=== PATIENT | male | born 1965 | race Caucasian/White ===

== ENCOUNTER 2020-10-03 15:36 | Inpatient (IN) | payer BC ==
[~2020-10-03] VITALS: Ht 177.8 cm; Wt 101.2 kg
[2020-10-03] VITALS (9 sets, daily range): BP systolic 106–157; BP diastolic 56–104
--- NOTE | 2020-10-03 02:00 | NUR ---
Stable,saturating 97-98 % on 2 L NC. States he's feeling much better.Needs attended,will continue to monitor respiratory status.
[2020-10-03] MEDS ORDERED: ZOLPIDEM TARTRATE 5 MG TABLET PO PRN (16:30)
[2020-10-03] MEDS ORDERED: HYDROCODONE/APAP 5/325MG TABLET PO PRN (16:30)
[2020-10-03] MEDS ORDERED: DEXAMETHASONE SOD PHOSPHATE 10 MG/ML VIAL IV SCH (16:30)
[2020-10-03] MEDS ORDERED: ONDANSETRON HCL/PF 4 MG/2 ML VIAL IVP PRN (16:30)
[2020-10-03] MEDS ORDERED: ACETAMINOPHEN 325 MG TABLET PO PRN (16:30)
[2020-10-03] MEDS ORDERED: MAGNESIUM HYDROXIDE 30 ML UDC PO PRN (16:30)
[2020-10-03] MEDS ORDERED: MAG HYDROX/AL HYDROX/SIMETH 30 ML UDC PO PRN (16:30)
[2020-10-03] MEDS ORDERED: ENOXAPARIN SODIUM 40 MG/0.4 ML DISP.SYRIN SQ SCH (16:30)
[2020-10-03] MEDS ORDERED: Z GUARD REMEDY 2 OZ OINT TP PRN (16:30)
--- NOTE | 2020-10-03 16:30 | NUR ---
DIET TECH DIRECT ADMIT FROM HOME PT IN STABLE CONDITION AOX4 VS STABLE ON 2L NC SAT 97% NO DISTRESS NOTED, IV ACCESS ESTABLISHED X2 R AND L ARM LAB AT BEDSIDE, MD AT BEDSIDE ASSESSING PT, CALL LIGHT W/ IN REACH ORDERS RECEIVED WILL MICHAEL OUT SAFETY MEASURES TAKEN CALL LIGHT W/ IN REACH WILL CONT TO MONITOR.
[2020-10-03] MEDS: CEFTRIAXONE 1 G in IV D5W 50 ML IV SCH (16:55)
[2020-10-03] MEDS: DEXAMETHASONE SOD PHOSPHATE 10 MG/ML VIAL IV SCH (17:01)
[2020-10-03] MEDS: ALBUTEROL SULFATE INH 18 GM HFA.AER.AD IH SCH ×3 (17:02→23:30)
[2020-10-03] MEDS: AZITHROMYCIN 500 MG in IV D5W 250 ML IV SCH (17:48)
[2020-10-03] MEDS ORDERED: ASPI-1169 PO (17:58)
[2020-10-03] MEDS ORDERED: CAND32TA9 PO (17:58)
[2020-10-03] MEDS ORDERED: ROSU10TA2 PO (17:58)
[2020-10-03 18:14] LABS: C-REACTIVE PROTEIN 12.3 mg/dL (0.0-0.9)
[2020-10-03 18:16] LABS: ALBUMIN 3.4 g/dL (3.4-5.0); BILIRUBIN,DIRECT 0.1 mg/dL (0.0-0.2); BILIRUBIN,TOTAL 0.2 mg/dL (0.2-1.0); BILIRUBIN,TOTAL 0.3 mg/dL (0.2-1.0); CALCIUM, SERUM 8.8 mg/dL (8.5-10.1); CREATININE 1.2 mg/dL (0.6-1.3); POTASSIUM 4.3 mmol/L (3.5-5.1); TOTAL PROTEIN, SERUM 6.6 g/dL (6.4-8.2)
[2020-10-03 18:24] LABS: THYROID STIMULATING HORMONE 4.153 uIU/mL (0.358-3.74)
[2020-10-03] MEDS: ALPRAZOLAM 1 MG TABLET PO PRN (18:55)
--- NOTE | 2020-10-03 19:00 | NUR ---
Received patient awake,alert,not in any respiratory distress,breathing regular and non labored,on nasal cannula 2 l/min. ,denies any chest pain,(-) cough.On contact /enhanced droplet isolation pending Covid test.Needs attended.Will closely monitor for any S/S of respiratory issues.
--- NOTE | 2020-10-03 19:05 | NUR ---
arboriculture instructor iv line was leaking both antibiotics which was scanned and hung did not reach to the pt as it leaked in the room. call pharmacy will make new dose to be given.
[2020-10-03 19:20] LABS: BASOPHILS % (AUTO) 0.5 % (0.0-2.0); EOSINOPHILS % (AUTO) 6.2 % (0.0-6.0); HEMATOCRIT 40 % (39-51); LYMPHOCYTES # (AUTO) 1.7 /CMM (0.8-4.8); LYMPHOCYTES % (AUTO) 18.3 % (20.0-44.0); MEAN CORPUSCULAR HGB CONC 33 g/dl (31.0-36.0); MEAN CORPUSCULAR VOLUME 86 fL (80-96); MONOCYTES # (AUTO) 0.8 /CMM (0.1-1.30); MONOCYTES % (AUTO) 9.2 % (2.0-12.0); NEUTROPHILS # (AUTO) 5.9 /CMM (1.8-8.9); NEUTROPHILS % (AUTO) 65.8 % (43.0-81.0); PLATELET COUNT (AUTO) 204 /CMM (150-450); RED BLOOD CELL COUNT(AUTO) 4.65 MIL/uL (4.5-6.0)
[2020-10-03] MEDS: ASPIRIN 81 MG TAB.CHEW PO SCH (21:33)
[2020-10-03] MEDS: ATORVASTATIN 10 MG TABLET PO SCH (21:34)
[2020-10-03] MEDS: LOSARTAN POTASSIUM 50 MG TABLET PO SCH (21:35)
[2020-10-03] MEDS: ENOXAPARIN SODIUM 40 MG/0.4 ML DISP.SYRIN SQ SCH (21:36)
--- NOTE | 2020-10-03 22:00 | NUR ---
Remains stable,not in any distress,will continue to closely monitor respiratory status.States he's feeling a lot better now .
[2020-10-03 22:43] LABS: BILIRUBIN,URINE NEGATIVE (NEGATIVE); BLOOD, URINE NEGATIVE Ery/uL (NEGATIVE); COLOR,URINE YELLOW (YELLOW); LEUKOCYTE ESTERASE ,URINE NEGATIVE (NEGATIVE); NITRITE, URINE NEGATIVE (NEGATIVE); PROTEIN,URINE NEGATIVE (NEGATIVE); UGLUCOSE NEGATIVE (NEGATIVE); UROBILINOGEN,URINE 0.2 EU/dL (0.2)
[2020-10-04] VITALS (20 sets, daily range): BP systolic 100–133; BP diastolic 62–84
--- NOTE | 2020-10-04 | NUR ---
Asleep, stable, saturating 95-97 % on NC 2 L/min.
--- NOTE | 2020-10-04 01:00 | NUR ---
Observed to be bradycardic as low as 40's, asymptomatic(as per patient ,states he can go as low as 30's at times when he's asleep)
--- NOTE | 2020-10-04 02:00 | NUR ---
Observed to desaturate to 86-88 % on room air. Made sure patient has his O2 on at all times.
[2020-10-04] MEDS: ALPRAZOLAM 1 MG TABLET PO PRN ×3 (02:20→22:06)
[2020-10-04] MEDS: ALBUTEROL SULFATE INH 18 GM HFA.AER.AD IH SCH ×6 (03:30→23:35)
[2020-10-04 04:28] LABS: BASOPHILS % (AUTO) 0.5 % (0.0-2.0); EOSINOPHILS % (AUTO) 9.6 % (0.0-6.0); HEMATOCRIT 38 % (39-51); HEMOGLOBIN 12.3 g/dL (13.5-17.5); LYMPHOCYTES # (AUTO) 1.3 /CMM (0.8-4.8); LYMPHOCYTES % (AUTO) 24.6 % (20.0-44.0); MEAN CORPUSCULAR HGB CONC 33 g/dl (31.0-36.0); MEAN CORPUSCULAR VOLUME 87 fL (80-96); MONOCYTES # (AUTO) 0.6 /CMM (0.1-1.30); MONOCYTES % (AUTO) 11.2 % (2.0-12.0); NEUTROPHILS # (AUTO) 2.9 /CMM (1.8-8.9); NEUTROPHILS % (AUTO) 54.1 % (43.0-81.0); PLATELET COUNT (AUTO) 205 /CMM (150-450); RED BLOOD CELL COUNT(AUTO) 4.34 MIL/uL (4.5-6.0); WHITE BLOOD COUNT (AUTO) 5.4 K/uL (4.3-11.0)
--- NOTE | 2020-10-04 04:30 | NUR ---
Chest X ray done.Remains stable.not in any distress,breathing regular and non labored.
[2020-10-04 04:44] LABS: CALCIUM, SERUM 8.6 mg/dL (8.5-10.1); CARBON DIOXIDE 25 mmol/L (21-32); CHLORIDE 105 mmol/L (98-107); GLUCOSE 101 mg/dL (74-106); MAGNESIUM 2.2 mg/dL (1.8-2.4); PHOSPHORUS 4.8 mg/dL (2.5-4.9); POTASSIUM 4.3 mmol/L (3.5-5.1); SODIUM SERUM 139 mmol/L (136-145); UREA NITROGEN, BLOOD 18 mg/dL (7-18)
[2020-10-04 05:03] LABS: C-REACTIVE PROTEIN 10.5 mg/dL (0.0-0.9)
--- NOTE | 2020-10-04 07:00 | NUR ---
Called lab. to expedite Covid PCR test ( Dr. Soto called to ask lab to expedite testing),spoke to Jose Miguel in the lab.
--- NOTE | 2020-10-04 07:45 | NUR ---
ICU/RN PT IS AWAKE,ALERT.ON 2L N/C SAT O2-95%.V/S STABLE,AFEBRILE.NO PAIN REPORTED AT THIS TIME.IV-HL.PT USE URINAL AND AMBULATE IN THE ROOM.HAS SOB ON EXERTION. COVID -19 PCR TEST PENDING.
[2020-10-04] MEDS: ASPIRIN 81 MG TAB.CHEW PO SCH (08:11)
[2020-10-04] MEDS: DEXAMETHASONE SOD PHOSPHATE 10 MG/ML VIAL IV SCH (08:12)
[2020-10-04] MEDS ORDERED: LOSARTAN POTASSIUM 50 MG TABLET PO SCH (09:00)
--- NOTE | 2020-10-04 09:00 | NUR ---
ICU/RN DUE MEDS ARE GIVEN ORDERED.
--- NOTE | 2020-10-04 11:00 | NUR ---
ICU/RN PCR RESULTED.IS NEGATIVE.DR CROWELL NOTIFIED. NEW TEST REORDERED.AND SEND TO THE LAB.
[2020-10-04] MEDS: AZITHROMYCIN 500 MG in IV D5W 250 ML IV SCH (15:50)
[2020-10-04] MEDS: HYDROCODONE BIT/HOMATROPINE 5 ML UDC PO PRN ×2 (15:50→22:05)
[2020-10-04] MEDS: CEFTRIAXONE 1 G in IV D5W 50 ML IV SCH (15:51)
[2020-10-04] MEDS ORDERED: HYDROCODONE BIT/HOMATROPINE 5 ML UDC PO PRN (16:00)
--- NOTE | 2020-10-04 18:00 | NUR ---
ICU/RN PM CARE PROVIDED.DUE MEDS ARE GIVEN ORDERED.PT HAS SOB WHEN AMBULATING .ON RA.PLACED BACK ON 2 L N/C .V/S STABLE,AFEBRILE.NO PAIN REPORTED AT THIS TIME.CONTINUE MONITORING.
--- NOTE | 2020-10-04 19:45 | NUR ---
ICU/SOCIAL SERVICES AIDE RECEIVED REPORT FROM DAY NURSE. SEE FLOWSHEET FOR ASSESSMENT,THERE ARE NO SKIN ISSUES WHICH NEED TO BE ADDRESSED ON FLOWSHEET. PT IS ALERT. PT IS ON 2 LITERS N/C, TOLERATING THIS WELL WITH SATURATION AT 96-97%. PT UP AMBULATING AT [facility], PT UP TO BATHROOM WITH STEADY GAIT. WILL CONTINUE TO MONITOR THIS PT, NO ACUTE DISTRESS SEEN. CALL LIGHT WITHIN REACH.
--- NOTE | 2020-10-04 21:00 | NUR ---
ICU/RADIATION CONTROL SPECIALIST CRITICAL LAB RESULT WAS THAT PT HAS A NEGATIVE COVID-19 TEST RESULT.
[2020-10-04] MEDS: ENOXAPARIN SODIUM 40 MG/0.4 ML DISP.SYRIN SQ SCH (21:09)
[2020-10-04] MEDS: ATORVASTATIN 10 MG TABLET PO SCH (21:11)
[2020-10-04] MEDS: LOSARTAN POTASSIUM 50 MG TABLET PO SCH (21:11)
--- NOTE | 2020-10-04 23:00 | NUR ---
ICU/AMBULETTE DRIVER PT REQUESTED XANAX PRN FOR SLEEP, ALONG WITH THE COUGH MEDICATION WHICH THE PT HAS ON OCCASION. PT'S CALL LIGHT IS WITHIN REACH, WILL CONTINUE TO MONITOR HIM.
--- NOTE | 2020-10-04 23:20 | NUR ---
ICU/CRM ADMINISTRATOR PT APPEARS TO BE ASLEEP, BLOOD PRESSURE CUFF IS OFF, WILL PLACE BACK ON PT WHEN AWAKE. PT'S CALL LIGHT IN REACH.
[2020-10-05] VITALS: BP 133/80
--- NOTE | 2020-10-05 02:10 | NUR ---
ICU/SOCIAL WORK COORDINATOR PT APPEARS TO BE ASLEEP COMFORTABLE, NO ACUTE DISTRESS SEEN. WILL CONTINUE TO MONITOR THIS PT.
[2020-10-05] MEDS: ALBUTEROL SULFATE INH 18 GM HFA.AER.AD IH SCH ×2 (03:43→08:03)
[2020-10-05 04:00] VITALS: BP 134/85
--- NOTE | 2020-10-05 05:00 | NUR ---
ICU/HRIS ADMINISTRATOR PT'S ASLEEP, NO ACUTE DISTRESS SEEN, PT APPREAS TO BE RESTING COMFORTABLE. PT HAD ASKED SLEEP AFTER TAKING XANAX. CALL LIGHT WITHIN REACH.
--- NOTE | 2020-10-05 07:15 | NUR ---
TALEND ETL DEVELOPER NOTES RECEIVED PATIENT ASLEEP , STABLE , NOT IN ACUTE DISTRESS ,RESPIRATIONS EVEN AND UNLABORED , SPO2 OF 98% VIA 2LPM NC , SB 55 ON BEDSIDE MONITOR , PIV PATENT AND INTACT SL , ALL NEEDS ATTENDED , WILL CONTINUE TO MONITOR .
[2020-10-05 07:17] LABS: BASOPHILS % (AUTO) 0.2 % (0.0-2.0); EOSINOPHILS % (AUTO) 3.9 % (0.0-6.0); HEMATOCRIT 40 % (39-51); HEMOGLOBIN 12.8 g/dL (13.5-17.5); MEAN CORPUSCULAR HGB CONC 33 g/dl (31.0-36.0); MEAN CORPUSCULAR VOLUME 87 fL (80-96); MONOCYTES # (AUTO) 0.8 /CMM (0.1-1.30); MONOCYTES % (AUTO) 8.3 % (2.0-12.0); NEUTROPHILS # (AUTO) 6.7 /CMM (1.8-8.9); NEUTROPHILS % (AUTO) 67.6 % (43.0-81.0); PLATELET COUNT (AUTO) 238 /CMM (150-450); RED BLOOD CELL COUNT(AUTO) 4.52 MIL/uL (4.5-6.0); WHITE BLOOD COUNT (AUTO) 9.9 K/uL (4.3-11.0)
[2020-10-05 07:28] LABS: CALCIUM, SERUM 8.8 mg/dL (8.5-10.1); CREATININE 0.9 mg/dL (0.6-1.3); MAGNESIUM 2.1 mg/dL (1.8-2.4); PHOSPHORUS 3.9 mg/dL (2.5-4.9); POTASSIUM 4.6 mmol/L (3.5-5.1)
[2020-10-05 08:00] VITALS: BP_SYST 133; BP_SYST 135; BP_DIAS 69; BP_DIAS 85
--- NOTE | 2020-10-05 08:00 | NUR ---
ELECTRIC CONTAINER TESTER NOTES PLACED PT ON RA , PT STABLE AT THIS TIME , NOTED WITH MILD SOB DURING ADL'S , VS STABLE AFEBRILE , WILL CONTINUE TO MONITOR .
[2020-10-05] MEDS: DEXAMETHASONE SOD PHOSPHATE 10 MG/ML VIAL IV SCH (08:03)
[2020-10-05] MEDS: ASPIRIN 81 MG TAB.CHEW PO SCH (08:03)
[2020-10-05] MEDS ORDERED: LEVO500T90 PO (08:09)
[2020-10-05] MEDS ORDERED: INFLUENZA VACCINE 2020-21 0.5 ML DISP.SYRIN IM ONE (10:00)
[2020-10-05] MEDS: HYDROCODONE BIT/HOMATROPINE 5 ML UDC PO PRN (10:44)
[2020-10-05] MEDS ORDERED: ALBU18HF2 INH (10:57)
[2020-10-05] MEDS ORDERED: GUAIFENESIN/D-METHORPHAN HB 5 ML UDC PO PRN (11:00)
--- NOTE | 2020-10-05 11:03 | NUR ---
JIGGER CROWN POUNCING MACHINE OPERATOR NOTES PT STABLE UPON DISCHARGE , NO COMPLAINS AT THIS TIME , VS STABLE , DISCHARGE INSTRUCTIONS AND PRESCRIPTIONS EXPLAINED PT VERBALIZED UNDERSTANDING , PIV REMOVED NO BLEEDING NOTED , SKIN INTACT , WILL CONTINUE TO MONITOR .
[2020-10-05] MEDS ORDERED: AZITHROMYCIN 250 MG TABLET PO ONE (11:30)
== END 2020-10-05 11:11 | disposition home or self-care (01) | DRG 177 ==
LOC: ICU 15:36
PROVIDERS: ADMIT Internal Medicine; ATTEND Internal Medicine
DX: J69.0 Pneumonitis due to inhalation of food and vomit (principal); J96.01 Acute respiratory failure with hypoxia; I10 Essential (primary) hypertension; E78.5 Hyperlipidemia, unspecified; D86.9 Sarcoidosis, unspecified; R00.1 Bradycardia, unspecified; J98.01 Acute bronchospasm; N20.0 Calculus of kidney; F17.220 Nicotine dependence, chewing tobacco, uncomplicated; J84.10 Pulmonary fibrosis, unspecified
CPT/HCPCS: 36415; 71045-TC; 80048-TC; 80053-TC; 80076-TC; 81000-TC; 82728-TC; 83615-TC; 83735-TC; 84100-TC; 84439-TC; 84443-TC; 84484-TC; 85025-TC; 85378-TC; 86140-TC; 87081-TC; 93307-TC; A6403; G0378; J0456; J0696; J1100; J1650; J7050; J7060; Q2036; U0003

== ENCOUNTER 2021-01-10 13:06 | Outpatient (CLI) | payer BC ==
[~2021-01-10 13:06] MED LIST: ALBU18HF2 INH; ASPI-1169 PO; CAND32TA9 PO; LEVO500T90 PO; ROSU10TA2 PO
== END 2021-01-10 23:59 | disposition home or self-care (01) ==
LOC: MRI 13:06
PROVIDERS: ATTEND Nurse Practitioner Acute Care
DX: S46.211A Strain of muscle, fascia and tendon of other parts of biceps, right arm, initial encounter (principal); M79.89 Other specified soft tissue disorders; X58.XXXA Exposure to other specified factors, initial encounter; Y93.89 Activity, other specified; Y92.89 Other specified places as the place of occurrence of the external cause; Y99.8 Other external cause status

== ENCOUNTER 2021-07-20 11:42 | Outpatient (CLI) | payer BC, OTHER | END 2021-07-20 23:59 | disposition home or self-care (01) | LOC: LAB 11:42 | PROVIDERS: ATTEND Nurse Practitioner Acute Care | DX: Z20.822 Contact with and (suspected) exposure to COVID-19 (principal) | CPT/HCPCS: 87426; C9803 ==